=== PATIENT | female | born 1990 | race Caucasian/White ===

== ENCOUNTER 2017-11-08 12:23 | Emergency (ER) | payer BC, OTHER ==
[~2017-11-08] VITALS: Ht 172.7 cm; Wt 120.2 kg
[~2017-11-08 12:23] MED LIST: ACHD5005 PO
--- OUTSIDE RECORDS SUMMARY | 2017-11-08 12:28 | XMS REPORT ---
Author Author Dar Butcher [facility] Address [address] [place] [address] Care Team Providers Care Distance Learning Coordinator Name Role Phone Dar Butcher Unavailable PROBLEMS Type Condition ICD9-CM Code [id number] Code Onset Dates Condition Status SNOMED Code Problem Major depressive disorder, recurrent, mild F33.0 Active 716098319 Problem Major depression, chronic F32.9 Active 303609003 Problem Vaginal yeast infection B37.3 Active 35846686 Problem History of hypothyroidism Z86.39 Active 734212163 Problem History of bulimia nervosa Z86.59 Active 781932904353181 ALLERGIES Unknown Allergies SOCIAL HISTORY No smoking Hx information available PLAN OF CARE VITAL SIGNS MEDICATIONS Medication Instructions Dosage Frequency Start Date End Date Duration Status Sertraline HCl 100 MG Orally Once a day 1 tablet 24h 30 days Active Fluconazole 150 MG Orally one tab today then repeat x 1 in 3 days 1 tablet May, Active RESULTS No Results PROCEDURES No Known procedures IMMUNIZATIONS No Known Immunizations
--- OUTSIDE RECORDS SUMMARY | 2017-11-08 12:28 | XMS REPORT ---
Author Author TYLER PEREZ [facility] Address [address] [place] [address] Care Team Providers Care Water Aerobics Instructor Name Role Phone TYLER PEREZ Unavailable PROBLEMS Type Condition ICD9-CM Code IBL20-LD Code Onset Dates Condition Status SNOMED Code Problem Bulimia F50.2 Active 65576143 Problem Tinea B35.9 Active 38746678 Problem Major depressive disorder with single episode, remission status unspecified F32.9 Active 51572004 Problem Encounter for BCP initial prescription Z30.011 Active 21160225 ALLERGIES Substance Reaction Event Type Date Status N.K.D.A. Unknown Non Drug Allergy Mar, Unknown SOCIAL HISTORY No smoking Hx information available PLAN OF CARE Activity Details Follow Up prn Reason: VITAL SIGNS Height 5.8 in 2016-04-15 Weight 251.7 lbs 2016-04-15 Temperature 97.8 degrees Fahrenheit 2016-04-15 Heart Rate 82 bpm 2016-04-15 Respiratory Rate 22 2016-04-15 Oximetry 97 % 2016-04-15 BMI 5,259.96 kg/m2 2016-04-15 Blood pressure systolic 142 mmHg 2016-04-15 Blood pressure diastolic 84 mmHg 2016-04-15 MEDICATIONS Medication Instructions Dosage Frequency Start Date End Date Duration Status Vyvanse 50 MG Orally Once a day 1 capsule in the morning 24h Active Promethazine-Codeine 6.25-10 MG/5ML Orally every 6 hrs 5-10 ml as needed 6h Mar, Mar, 10 days Active Cipro 500 MG Orally Twice a day 1 tablet 12h Mar, Mar, 10 day(s) Active Zoloft 100 MG Orally Once a day 1 tablet 24h Active RESULTS Name Result Date Reference Range UA LONG DIP (IN HOUSE) 2016-04-15 Lot # [id number] Exp date 11/2016 Clarity slightly cloudy Color red Odor none GLU 1+ JARROD 2+ KET 1+ SG 1.015 BLO 2+ pH 5.0 Protein 2+ URO >=8.0 NIT positive KAYLI 3+ Lot # Exp date CULTURE, URINE 2016-04-15 Urine Culture, Routine Final report Result 1 No growth PROCEDURES Procedure Date Ordered Related Diagnosis Body Site MEASURE BLOOD OXYGEN LEVEL Apr 15, 2016 Office Visit, Est Pt., Level 3 Apr 15, 2016 URINALYSIS, AUTO, W/O SCOPE Apr 15, 2016 URINE CULTURE/COLONY COUNT Apr 15, 2016 IMMUNIZATIONS No Known Immunizations
--- OUTSIDE RECORDS SUMMARY | 2017-11-08 12:28 | XMS REPORT ---
Author Author TYLER PEREZ [facility] Address [address] [place] [address] Care Team Providers Care Shop Hand Name Role Phone TYLER PEREZ Unavailable PROBLEMS Type Condition ICD9-CM Code VIN01-SE Code Onset Dates Condition Status SNOMED Code Problem Bulimia F50.2 Active 54776991 Problem Tinea B35.9 Active 54683589 Problem Major depressive disorder with single episode, remission status unspecified F32.9 Active 09008279 Problem Encounter for BCP initial prescription Z30.011 Active 10530334 ALLERGIES Unknown Allergies SOCIAL HISTORY No smoking Hx information available PLAN OF CARE VITAL SIGNS MEDICATIONS Unknown Medications RESULTS Name Result Date Reference Range TSH 2016-04-17 TSH 4.450 0.450-4.500 CBC 2016-04-17 WBC 4.5 3.4-10.8 RBC 4.69 3.77-5.28 Hemoglobin 13.7 11.1-15.9 Hematocrit 43.6 34.0-46.6 MCV 93 79-97 MCH 29.2 26.6-33.0 MCHC 31.4 31.5-35.7 RDW 13.0 12.3-15.4 Platelets 403 150-379 Neutrophils 31 Lymphs 53 Monocytes 11 Eos 4 Basos 1 Neutrophils (Absolute) 1.4 1.4-7.0 Lymphs (Absolute) 2.4 0.7-3.1 Monocytes(Absolute) 0.5 0.1-0.9 Eos (Absolute) 0.2 0.0-0.4 Baso (Absolute) 0.0 0.0-0.2 Immature Granulocytes 0 Immature Grans (Abs) 0.0 0.0-0.1 LIPID PANEL 2016-04-17 Cholesterol, Total 152 100-199 Triglycerides 75 0-149 HDL Cholesterol 55 >39 VLDL Cholesterol Ahmet 15 5-40 LDL Cholesterol Calc 82 0-99 CMP 2016-04-17 Glucose, Serum 85 65-99 BUN 13 6-20 Creatinine, Serum 0.83 0.57-1.00 eGFR If NonAfricn Am 98 >59 eGFR If Africn Am 113 >59 BUN/Creatinine Ratio 16 8-20 Sodium, Serum 140 134-144 Potassium, Serum 4.9 3.5-5.2 Chloride, Serum 99 96-106 Carbon Dioxide, Total 25 18-29 Calcium, Serum 9.4 8.7-10.2 Protein, Total, Serum 7.2 6.0-8.5 Albumin, Serum 4.1 3.5-5.5 Globulin, Total 3.1 1.5-4.5 A/G Ratio 1.3 1.1-2.5 Bilirubin, Total <0.2 0.0-1.2 Alkaline Phosphatase, S 66 39-117 AST (SGOT) 19 0-40 ALT (SGPT) 20 0-32 HEPATITIS PROFILE 2016-04-17 Hep A Ab, IgM Negative Negative HBsAg Screen Negative Negative Hep B Core Ab, IgM Negative Negative Hep C Virus Ab <0.1 0.0-0.9 Written Authorization 2016-04-17 Written Authorization SYPHILIS (RPR W/ REFLEX CONFIRMATION) 2016-04-17 RPR Non Reactive Non Reactive PROCEDURES Procedure Date Ordered Related Diagnosis Body Site ASSAY THYROID STIM HORMONE Apr 17, 2016 COMPLETE CBC W/AUTO DIFF WBC Apr 17, 2016 COMPREHEN METABOLIC PANEL Apr 17, 2016 LIPID PANEL Apr 17, 2016 VENIPUNCT, ROUTINE* Apr 17, 2016 ACUTE HEPATITIS PANEL Apr 17, 2016 IMMUNIZATIONS No Known Immunizations
--- OUTSIDE RECORDS SUMMARY | 2017-11-08 12:28 | XMS REPORT ---
Author Author Glenda Lyles [facility] Address [address] [place] [address] Care Team Providers Care Comfort Filler Name Role Phone Glenda Lyles Unavailable PROBLEMS Type Condition ICD9-CM Code VKE20-ZH Code Onset Dates Condition Status SNOMED Code Problem Major depressive disorder, recurrent, mild F33.0 Active 408418803 Problem Major depression, chronic F32.9 Active 449738654 Problem Vaginal yeast infection B37.3 Active 74407723 Assessment Major depressive disorder, recurrent, mild F33.0 22 May, 2016 Active 454908279 Problem History of hypothyroidism Z86.39 Active 875668099 Problem History of bulimia nervosa Z86.59 Active 107098737222257 ALLERGIES Unknown Allergies SOCIAL HISTORY No smoking Hx information available PLAN OF CARE VITAL SIGNS MEDICATIONS Unknown Medications RESULTS No Results PROCEDURES Procedure Date Ordered Related Diagnosis Body Site Psytx New Pt& Family 30 Min May 22, 2016 Multiple services provided same day adj 2nd copay May 22, 2016 IMMUNIZATIONS No Known Immunizations
--- OUTSIDE RECORDS SUMMARY | 2017-11-08 12:28 | XMS REPORT ---
Author Author Dar Butcher [facility] Address [address] [address] Care Team Providers Care Youth Services Librarian Name Role Phone Dar Butcher Unavailable PROBLEMS Type Condition ICD9-CM Code TIQ30-SJ Code Onset Dates Condition Status SNOMED Code Problem Major depressive disorder, recurrent, mild F33.0 Active 554408524 Problem Major depression, chronic F32.9 Active 074640665 Problem Vaginal yeast infection B37.3 Active 16855649 Assessment Major depression, chronic F32.9 May, Active 754693080 Problem History of hypothyroidism Z86.39 Active 066274339 Problem History of bulimia nervosa Z86.59 Active 367915073431702 ALLERGIES Substance Reaction Event Type Date Status N.K.D.A. Unknown Non Drug Allergy May, Unknown SOCIAL HISTORY No smoking Hx information available PLAN OF CARE Activity Details Pending Test Urinalysis, Routine Pending Test CBC w/o differential Pending Test CMP (Comprehensive Metabolic Panel) Pending Test TSH Rfx on Abnormal to Free T4 3 Months,Reason: VITAL SIGNS Temperature 97.6 degrees Fahrenheit 2016-05-22 Heart Rate 110 /min 2016-05-22 Height 69 in 2016-05-22 Weight 249.0 lbs 2016-05-22 BMI 36.77 kg/m2 2016-05-22 Respiratory Rate 16 /min 2016-05-22 Oximetry 98 % 2016-05-22 Blood pressure systolic 120 mm Hg 2016-05-22 Blood pressure diastolic 90 mm Hg 2016-05-22 MEDICATIONS Medication Instructions Dosage Frequency Start Date End Date Duration Status Sertraline HCl 100 MG Orally Once a day 1 tablet 24h 30 days Active Vyvanse 50 MG Orally Once a day 1 capsule in the morning 24h 30 days Active Fluconazole 150 MG Orally one tab today then repeat x 1 in 3 days 1 tablet May, Active RESULTS No Results PROCEDURES Procedure Date Ordered Related Diagnosis Body Site OFFICEOUTPATIENT VISIT NEW OFFICE OR OTHER OUTPATIENT VISIT FOR THE EVALUATION AND MANAGEMENT OF A NEW PATIENT, WHICH REQUIRES THESE 3 CERVANTES COMPONENTS. A DETAILED HISTORY A DETAILED EXAMINATION,MEDICAL DECISION MAKING OF LOW COMPLEXITY. May 22, 2016 URINALYSIS AUTO WO SCOPE URINALYSIS, BY DIP STICK OR TABLET REAGENT FOR BILIRUBIN, GLUCOSE, HEMOGLOBIN, KETONES, LEUKOCYTES, NITRITE, PH, PROTEIN, SPECIFIC GRAVITY, UROBILINOGEN, ANY NUMBER OF THESE CONSTITUENTS; AUTOMATED, WITHOUTMICROSCOPY May 22, 2016 Outside Labs Self-Pay Patients Only May 22, 2016 IMMUNIZATIONS No Known Immunizations
--- OUTSIDE RECORDS SUMMARY | 2017-11-08 12:28 | XMS REPORT | Continuity of Care Document ---
Author Author [facility] Organization [facility] Address Unknown Phone Unavailable Allergies Active Description Code Type Severity Reaction Onset Reported/Identified Relationship to Patient Clinical Status Yes No Known Drug Allergies [id number] Drug Allergy Unknown N/A 08/10/2009 Medications There is no data. Problems Date Dx Coded Attending Type Code Diagnosis Diagnosed By 08/06/2013 MIKAEL CASIANO DO Ot 881.00 OPEN WOUND OF FOREARM 08/06/2013 MIKAEL CASIANO DO Ot E000.8 OTHER EXTERNAL CAUSE STATUS 08/06/2013 MIKAEL CASIANO DO Ot E015.0 ACTIVITIES INVOLVING FOOD PREPARATION AN 08/06/2013 MIKAEL CASIANO DO Ot E849.0 ACCIDENT IN HOME 08/06/2013 MIKAEL CASIANO DO Ot E920.8 ACC-CUTTING INSTRUM NEC 03/22/2015 FÁTIMA GOLD APRN Ot R10.817 03/22/2015 FÁTIMA GOLD APRN Ot R10.817 03/22/2015 FÁTIMA GOLD APRN Ot R10.817 04/06/2015 FÁTIMA GOLD APRN Ot R10.817 04/12/2015 FÁTIMA GOLD CORE MACHINE TENDER Ot R10.817 08/31/2015 NIHARIKA BEAVERS DO Ot Z32.02 ENCOUNTER FOR TEST, RESULT NEG 09/01/2015 NIHARIKA BEAVERS DO Ot Z32.02 ENCOUNTER FOR TEST, RESULT NEG 09/06/2015 NIHARIKA BEAVERS DO Ot Z32.02 ENCOUNTER FOR TEST, RESULT NEG 09/22/2015 NIHARIKA BEAVERS DO Ot Z32.02 ENCOUNTER FOR TEST, RESULT NEG 01/25/2016 ELIU CABELLO Ot F17.210 NICOTINE DEPENDENCE, CIGARETTES, UNCOMPL 01/25/2016 ELIU CABELLO Ot M51.36 OTHER INTERVERTEBRAL DISC DEGENERATION, 01/25/2016 ELIU CABELLO Ot M54.42 LUMBAGO WITH SCIATICA, LEFT SIDE 01/26/2016 ELIU CABELLO Ot F17.210 NICOTINE DEPENDENCE, CIGARETTES, UNCOMPL 01/26/2016 DESTINEY, ELIU MCCALLUM Ot M51.36 OTHER INTERVERTEBRAL DISC DEGENERATION, 01/26/2016 DESTINEY, ELIU BARRONP Ot M54.42 LUMBAGO WITH SCIATICA, LEFT SIDE 01/26/2016 DESTINEY, ELIU MCCALLUM Ot F17.210 NICOTINE DEPENDENCE, CIGARETTES, UNCOMPL 01/26/2016 DESTINEY, ELIU BARRONP Ot M51.36 OTHER INTERVERTEBRAL DISC DEGENERATION, 01/26/2016 DESTINEY, ELIU BARRONP Ot M54.42 LUMBAGO WITH SCIATICA, LEFT SIDE Procedures There is no data. Results There is no data. Encounters ACCT No. Visit Date/Time Discharge Status Pt. Type Provider Facility Loc./Unit Complaint [id number] 01/25/2016 11:28:00 01/25/2016 13:42:00 DIS Emergency ELIU CABELLO [facility] ER BACK PAIN [id number] 08/31/2015 08:45:00 08/31/2015 10:35:00 DIS Emergency NIHARIKA BEAVERS DO [facility] ER [id number] 03/17/2015 08:15:00 03/17/2015 23:59:59 CLS Outpatient FÁTIMA GOLD APRN [facility] RAD [id number] 03/08/2015 10:17:00 03/08/2015 23:59:59 CLS Outpatient FÁTIMA GOLD APRN [facility] RAD [id number] 08/06/2013 04:25:00 08/06/2013 04:57:00 DIS Emergency MIKAEL CASIANO DO [facility] ER
--- OUTSIDE RECORDS SUMMARY | 2017-11-08 12:28 | XMS REPORT ---
Author Author KERVIN RETANA Organization [facility] Address [address] [place] [address] Care Team Providers Care Chimney Builder Name Role Phone KERVIN RETANA Unavailable PROBLEMS Type Condition ICD9-CM Code DSJ62-IF Code Onset Dates Condition Status SNOMED Code Problem Bulimia F50.2 Active 43605078 Problem Tinea B35.9 Active 61377638 Problem Major depressive disorder with single episode, remission status unspecified F32.9 Active 83530876 Problem Encounter for BCP initial prescription Z30.011 Active 38002804 ALLERGIES No Information SOCIAL HISTORY Never Assessed PLAN OF CARE Activity Details Follow Up prn PCP Luís Reason: Pending Test SYPHILIS (RPR W/ REFLEX CONFIRMATION) VITAL SIGNS Height 5.8 in 2016-04-23 Weight 249.0 lbs 2016-04-23 Temperature 97.0 degrees Fahrenheit 2016-04-23 BMI 5,203.54 kg/m2 2016-04-23 Blood pressure systolic 130 mmHg 2016-04-23 Blood pressure diastolic 78 mmHg 2016-04-23 MEDICATIONS Medication Instructions Dosage Frequency Start Date End Date Duration Status Diflucan 150 MG Orally q3 days 1 tablet Mar, 3 May, 2016 10 day (s) Active RESULTS Name Result Date Reference Range TRICHOMONAS (IN HOUSE) 2016-04-23 TRICHOMONAS negative Control + Lot # [id number] Exp date 05/2017 BACTERIAL VAGINOSIS (IN HOUSE) 2016-04-23 RESULTS Positive Control + Lot # [id number] Exp date 10/2016 CULTURE, GENITAL 2016-04-23 Genital Culture, Routine Final report Result 1 GC/CHLAM PROBE (STATE) 2016-04-23 CHLAMYDIA GC PROCEDURES Procedure Date Ordered Result Body Site CULTURE, BACTERIA, OTHER Apr 23, 2016 TRICHOMONAS ASSAY W/OPTIC Apr 23, 2016 No Charge Apr 23, 2016 SANCHEZ VAG, DNA, DIR PROBE Apr 23, 2016 BLOOD SEROLOGY, QUALITATIVE Apr 23, 2016 IMMUNIZATIONS No Known Immunizations MEDICAL (GENERAL) HISTORY Type Description Date Medical History Bulima Surgical History breast augmentation Surgical History right clavicle repair- Hospitalization History phyc- bulemia 2014
--- OUTSIDE RECORDS SUMMARY | 2017-11-08 12:28 | XMS REPORT ---
Author Author KREVIN RETANA [facility] Address [address] [place] [address] Care Team Providers Care Ocean Freight Forwarder Name Role Phone KERVIN RETANA Unavailable PROBLEMS Type Condition ICD9-CM Code QUR13-FX Code Onset Dates Condition Status SNOMED Code Problem Bulimia F50.2 Active 83119066 Problem Tinea B35.9 Active 77348586 Problem Major depressive disorder with single episode, remission status unspecified F32.9 Active 24795801 Problem Encounter for BCP initial prescription Z30.011 Active 24692869 ALLERGIES No Information SOCIAL HISTORY Never Assessed PLAN OF CARE VITAL SIGNS MEDICATIONS Unknown Medications RESULTS No Results PROCEDURES No Known procedures IMMUNIZATIONS No Known Immunizations MEDICAL (GENERAL) HISTORY Type Description Date Medical History Bulima Surgical History breast augmentation Surgical History right clavicle repair- Hospitalization History phych- bulemia 2014
--- NOTE | 2017-11-08 12:42 | ED Upper Extremity ---
General Chief Complaint: Upper Extremity Stated Complaint: R HAND LITTLE FINGER LAC Nursing Triage Note: AMBULATED TO ROOM 08 WITHOUT DIFFICULTY. STATES SHE WAS USING A MANDOLIN AND SLICED THE PAD OFF HER 5HT LEFT FINGER. Nursing Sepsis Screen: No Definite Risk Source: patient Exam Limitations: no limitations History of Present Illness Date Seen by Provider: Nov 08, 2017 Time Seen by Provider: 12:36 Initial Comments To ER with reports of a laceration to the tip of the right pinky finger. Tetanus is not up-to-date. Accidentally cut her finger while using a mandolin. Onset: just prior to arrival Severity: moderate Pain/Injury Location: left 5th finger Modifying Factors: Worse With Movement Allergies and Home Medications Allergies Coded Allergies: No Known Drug Allergies (Unverified , 08/10/09) Home Medications Hydrocodone Bit/Acetaminophen 1 Each Tablet, 2 EACH PO Q6H PRN for PAIN Prescribed by: ELIU CABELLO on 01/25/16 1323 Patient Home Medication List Home Medication List Reviewed: Yes Constitutional: see HPI EENTM: see HPI Respiratory: no symptoms reported Cardiovascular: no symptoms reported Genitourinary: no symptoms reported Musculoskeletal: see HPI Skin: see HPI Psychiatric/Neurological: No Symptoms Reported Past Khnhxbz-Gzpkio-Svltmz Hx Patient Social History Type Used: Cigarettes Recent Foreign Travel: No Contact w/Someone Who Travel: No Recent Infectious Disease Expo: No Recent Hopitalizations: No Immunizations Up To Date Tetanus Booster (TDap): More than 5yrs Past Medical History Surgeries: Yes (BREAST AUGMENTATION, RIGHT CLAVICLE FX/ORIF) Orthopedic Respiratory: No Cardiac: No Neurological: No Female Reproductive Disorders: Denies Gastrointestinal: No Musculoskeletal: Yes (RIGHT CLAVICLE FX/ORIF) Chronic Back Pain, Fractures Endocrine: No Cancer: No Psychosocial: Yes ADD/ADHD, Anxiety, Depression Integumentary: No Physical Exam Vital Signs Vital Signs - First Documented 11/08/17 12:23 Temp 98.0 Pulse 78 Resp 16 B/P (MAP) 106/85 (92) Pulse Ox 98 O2 Delivery Room Air Capillary Refill : Less Than 3 Seconds Height, Weight, BMI Height: 5'8.00" Weight: 265lbs. oz. 120.711909fp; BMI Method:Stated General Appearance: WD/WN, no apparent distress HEENT: PERRL/EOMI, normal ENT inspection Shoulder: normal inspection, non-tender Elbow/Forearm: normal inspection, non-tender, no evidence of injury Wrist: Yes no evidence of injury Hand: Right, laceration (skin avulsion to the ulnar side tip of the pad of the pinky finger with a ride) Neurologic/Tendon: normal sensation, normal motor functions, normal tendon functions Neurologic/Psychiatric: alert, normal mood/affect, oriented x 3 Skin: normal color, warm/dry Procedures/Interventions Wound Location: Upper Extremities Wound Length (cm): 0.5 Wound's Depth, Shape: superficial Other Closure Supply: Wound Adhesive Progress/Results/Core Measures Results/Orders Vital Signs/I&O 11/08/17 12:23 Temp 98.0 Pulse 78 Resp 16 B/P (MAP) 106/85 (92) Pulse Ox 98 O2 Delivery Room Air Blood Pressure Mean: 92 Departure Impression Primary Impression: Skin avulsion Disposition: 01 HOME, SELF-CARE Condition: Stable Departure-Patient Inst. Decision time for Depature: 12:38 Referrals: NO,LOCAL PHYSICIAN (PCP/Family) Primary Care Physician Patient Instructions: SKIN AVULSION Add. Discharge Instructions: 1. Wear the fingertip protector for the next 2-3 days. You can shower and wash her hands but do not apply any petroleum-based products like Vaseline or triple antibiotic ointment. The glue will follow off on its own in 3-5 days All discharge instructions reviewed with patient and/or family. Voiced understanding. ALLY HEATH APRN Nov 08, 2017 12:42
[2017-11-08] MEDS ORDERED: TETANUS,DIPTH,PERTUSS P/F (BOOSTRIX) 0.5 ML VIAL IM ONE (12:45)
[2017-11-08 12:50] VITALS: BP 106/85
[2017-11-08] MEDS ORDERED: HYDROcodone/APAP 5 MG/325 MG (LORTAB) TAB PO ONE (13:00)
== END 2017-11-08 12:50 | disposition home or self-care (01) ==
LOC: EDUNIT# 12:23 → ER 12:24
DX: S61.216A Laceration without foreign body of right little finger without damage to nail, initial encounter (principal); F90.9 Attention-deficit hyperactivity disorder, unspecified type; F41.9 Anxiety disorder, unspecified; F32.9 Major depressive disorder, single episode, unspecified; W26.8XXA Contact with other sharp object(s), not elsewhere classified, initial encounter
CPT/HCPCS: 12011; 29130; 90471; 90715